=== PATIENT | male | born 1945 | race Caucasian/White ===

== ENCOUNTER 2019-07-24 03:59 | Inpatient (IN) | payer OTHER, MEDICARE ==
[~2019-07-24] VITALS: Ht 172.7 cm; Wt 67.6 kg
[~2019-07-24 03:59] MED LIST: ADVAIR HFA115 MCG/21 INH; AUGMENTIN 875-1 EACH PO; COLACE100 MG PO; FIBER500 MG PO; GAS-X125 M1 PO; HYDROCODONE-AP1 EAC6 PO; MOBIC7.5 MG PO; SIMVASTATIN20 MG PO; SPIRIVA INH; STOOL SOFTENER100 M1 PO; ZOFRAN ODT4 MG DISSOLVE
[2019-07-24 05:24] LABS: ANION GAP 7 mmol/L (7-16); BUN 28 mg/dL (7-18); CALCIUM 8.6 mg/dL (8.5-10.1); CHLORIDE 103 mmol/L (98-107); CO2 27 mmol/L (21-32); CREATININE 1.5 mg/dL (0.7-1.3); GLUCOSE 100 mg/dL (74-106); POTASSIUM 5.2 mmol/L (3.5-5.1); SODIUM 137 mmol/L (136-145)
[2019-07-24 05:25] LABS: ABSOLUTE NEUTROPHILS 4.5 thou/uL (1.4-8.2); BASOPHILS 1.2 % (0.0-2.0); EOSINOPHILS 2.5 % (0.0-3.0); HEMATOCRIT 28.5 % (42.0-52.0); HEMOGLOBIN 9.2 gm/dL (14.0-18.0); LYMPHOCYTES 22.6 % (24.0-44.0); MCH 31.5 pg (26.0-34.0); MCHC 32.4 g/dL (28.0-37.0); MCV 97.2 fL (80.0-100.0); MONOCYTES 7.1 % (1.0-8.0); PLATELET COUNT 155 thou/uL (150-400); POLYS 66.6 % (36.0-66.0); RBC 2.93 mil/uL (4.50-6.00); WBC 6.7 thou/uL (4.0-11.0)
[2019-07-24 05:28] LABS: PROTIME 10.5 Seconds (9.3-11.4)
[2019-07-24 05:34] LABS: ALBUMIN 3.2 g/dL (3.4-5.0); LIPASE 227 U/L (73-393); SGOT 16 U/L (15-37); SGPT 19 U/L (30-65); TOTAL BILIRUBIN 0.4 mg/dL (<0.1-1.0); TOTAL PROTEIN 6.1 g/dL (6.4-8.2); TROPONIN-I <0.06 ng/mL (<0.06)
[2019-07-24 06:02] LABS: URINE BILIRUBIN NEGATIVE (Negative); URINE BLOOD NEGATIVE (Negative); URINE CLARITY CLEAR; URINE COLOR YELLOW; URINE GLUCOSE-RANDOM* NEGATIVE (Negative); URINE KETONES NEGATIVE (Negative); URINE LEUKOCYTES-REFLEX NEGATIVE (Negative); URINE NITRITE-REFLEX NEGATIVE (Negative); URINE PROTEIN (DIPSTICK) NEGATIVE (Negative); URINE UROBILINOGEN 0.2 E.U./dl (0.2-1.0)
[2019-07-24 06:31] VITALS: BP 139/72
[2019-07-24 06:52] VITALS: BP 134/83
[2019-07-24 07:17] VITALS: BP 135/76
--- NOTE | 2019-07-24 09:05 | EKG ---
[address] [address] ELECTROCARDIOGRAM REPORT Name: FORDMARCELLE Room #: 353-P ADM IN M.R.#: [id number] Admission: 07/24/19 Attend Phys: Bhavin Gramajo MD Discharge: Date of : 47 Report #: [id number] THIS REPORT FOR: //name// [facility] ED Test Date: 2019-07-24 Test Time: 04:38:07 Pat Name: MARCELLE FORD Department: Room: [facility] Gender: M Manufacturing Engineering Director: SAROJ : 1945 Requested By: Kris Moreau Order Number: [id number] MD: Bj Crooks Measurements Intervals [place] Rate: 77 P: 84 ND: 138 QRS: 82 QRSD: 103 T: 82 QT: 393 QTc: 445 Interpretive Statements Sinus rhythm Borderline T wave abnormalities Compared to ECG 02/17/2016 14:21:09 T-wave abnormality now present Electronically Signed On 07-24-2019 9:05:27 LUBE MAN by Bj Crooks [email or web address] <ELECTRONICALLY SIGNED> By: Bj Crooks MD, [facility] 07/24/19904 0438 7 Bj Crooks MD, FAC /EPI
--- NOTE | 2019-07-24 10:43 | NUR ---
ASSESSMENT: CM REVIEWED CHART AND MET WITH PATIENT AT THE BEDSIDE. PT WAS ADMITTED WITH RECTAL BLEEDING. PT REPORTS HE LIVES IN A HOUSE WITH HIS . PT REPORTS THEY HAVE NO STEPS TO ENTER AND NO STEPS ONCE INSIDE. PT REPORTS HE AMBULATES INDEPENDENTLY BUT DOES USE A CANE WHEN GOING TO GET THE MAIL OR FOR LONG DISTANCES. PT REPORTS HE ALSO HAS A WALKER HE DOES NOT USE. PT REPORTS HE DOES NOT HAVE A GRAB BAR OR SHOWER CHAIR AND IS INDEPENDENT WITH ADLS. PT REPORTS THAT HE WEARS OXYGEN AT BEDTIME 4L AND UNSURE OF WHO THE PROVIDER IS. PT REPORTS HE HAS NOT HAD HH IN THE PAST OR BEEN TO A SNF. CM DISCUSSED ROLE. PT IS HOPEFUL HE WILL BE ABLE TO RETURN HOME WITH NO NEEDS.
[2019-07-24 11:19] VITALS: BP 123/78
[2019-07-24 11:27] LABS: TSH 2.063 uIU/mL (0.358-3.740)
[2019-07-24 12:08] LABS: HEMATOCRIT 25.6 % (42.0-52.0); HEMOGLOBIN 8.4 gm/dL (14.0-18.0)
--- NOTE | 2019-07-24 12:24 | NUR ---
Pt arrived from ER approx. 0645 this AM at shift change to room 353. Pt attached to surveillance system monitor. Maintenance fluids and protonix gtt started. Admission history complete. MED REC INCOMPLETE on unit as patient is unable to state what medications he is on. JOLENE Mcghee made aware and personally assessed patient at bedside this morning. H&H's ordered for Q8H. Will continue to monitor Hgb & signs of rectal bleeding.
[2019-07-24 12:30] LABS: FOLIC ACID 43.7 ng/mL (8.6-58.9)
[2019-07-24 16:00] VITALS: BP 148/81
[2019-07-24 19:27] VITALS: BP 126/65
[2019-07-24 19:45] LABS: HEMATOCRIT 25.6 % (42.0-52.0); HEMOGLOBIN 8.3 gm/dL (14.0-18.0)
[2019-07-25 03:14] VITALS: BP 121/69
[2019-07-25 03:44] LABS: ABSOLUTE NEUTROPHILS 4.9 thou/uL (1.4-8.2); HEMATOCRIT 23.9 % (42.0-52.0); HEMOGLOBIN 7.9 gm/dL (14.0-18.0); LYMPHOCYTES 18.5 % (24.0-44.0); MCH 32.1 pg (26.0-34.0); MCHC 33.1 g/dL (28.0-37.0); MCV 96.9 fL (80.0-100.0); MONOCYTES 6.6 % (1.0-8.0); PLATELET COUNT 147 thou/uL (150-400); POLYS 71.9 % (36.0-66.0); RBC 2.47 mil/uL (4.50-6.00); RDW 12.6 % (10.5-14.5); WBC 6.8 thou/uL (4.0-11.0)
[2019-07-25 03:51] LABS: CALCIUM 8.4 mg/dL (8.5-10.1); CREATININE 1.1 mg/dL (0.7-1.3); MAGNESIUM 1.6 mg/dL (1.8-2.4); POTASSIUM 4.5 mmol/L (3.5-5.1)
--- NOTE | 2019-07-25 05:47 | NUR ---
PT IS A/O X3 WITH FORGETFULNESS. PT HAS IMPULSIVENESS AND REFUSES TO TAKE DIRECTIONS FROM STAFF ABOUT STAYING SAFE AND USING CALL LIGHT, AND NOT GETTING UP WITHOUT STAFF. PT UNSCREWED HIS IV FROM THE J-LOOP AND DURING ROUNDS IT WAS DISCOVERED. IV SITE STILL INTACT. LABS RESULTED SHOWING HgB STILL DROPPING, WELL PLATELETS. FOLLOWING POC WITH IVF AND PROTONIX GTT.
[2019-07-25 07:17] VITALS: BP 130/73
[2019-07-25 11:00] LABS: % SATURATION 20 % (20-39); IRON 46 ug/dL (65-175); TIBC 228 ug/dL (250-450)
[2019-07-25 11:46] LABS: HEMATOCRIT 24.4 % (42.0-52.0); HEMOGLOBIN 8.1 gm/dL (14.0-18.0)
--- NOTE | 2019-07-25 12:09 | NUR ---
on-going assessment: CM REVIEWED CHART AND MET WITH PATIENT AT THE BEDSIDE. PT REPORTS HE WANTS TO GO HOME TO TAKE CARE OF HIS . PT REPORTS THAT SHE IS HOME BY HERSELF DURING THE DAY BUT HER GRANDSON IS ABLE TO LOOK AFTER HER BUT WORKS DURING THE DAY. HE STATES HE FEEDS HIS CATS/DOGS AROUND 3 AND IS HOPING TO BE HOME BEFORE THEN. CM ASKED IF HIS GRANDSON CAN DO THIS HE STATED YES BUT HE WONT BE THERE UNTIL LATER. CM OFFERED TO REACH OUT TO PTS OR GRANDSON AND PT STATED THAT IT WAS OK. PLANS ARE FOR PATIENT TO RETURN HOME ONCE MEDICALLY STABLE. PT IS SUPPOSED TO GET A FLEX SIG TODAY.
[2019-07-25 16:12] VITALS: BP 155/83
--- NOTE | 2019-07-25 16:20 | NUR ---
ASSUMED CARE OF PATIENT AT 0700. VSS. ROOM AIR. NORMAL SINUS RHYTHM ON MONITOR. PATIENT CONTINUES TO HAVE BLOODY STOOL - FLEX SIG TODAY DID NOT SHOW SOURCE OF BLEEDING. PATIENT HAS STAYED ABOVE BLOOD TRANSFUSION HEMOGLOBIN LIMIT OF 7. HGB WAS 7.8 WHEN I ASSUMED CARE AND 8.1 AT 11:39 THIS MORNING. PATIENT HAS COMPLAINT OF WANTING TO LEAVE - MUST BE EXPLAINED TO HIM MULTIPLE TIMES HE MUST STAY DUE TO BLEEDING AND PHYSICIAN HAS NOT DISCHARGED HIM YET. CONTINUING TO MONITOR.
[2019-07-25 20:30] VITALS: BP 142/53
[2019-07-26 04:26] LABS: CALCIUM 8.8 mg/dL (8.5-10.1); POTASSIUM 3.8 mmol/L (3.5-5.1)
[2019-07-26 05:27] VITALS: BP 158/60
--- NOTE | 2019-07-26 06:19 | NUR ---
RESUMED CARE FOR PT. PT SLEEPING IN CHAIR ALL NIGHT. FOLLOWING POC WITH IVF GTT AND PROTONIX GTT. PT HAS SOME CONFUSION AND IMPULSIVE. BED/CHAIR ALARMS IS A MUST. HOURLY ROUNDING.
[2019-07-26 07:15] VITALS: BP 148/70
--- NOTE | 2019-07-26 14:27 | NUR ---
Patient has been trying to leave AMA stating that he is leaving today no matter what anybody says. Patient has had early signs of dementia and has been very forgetful which has been progressively getting worse according to family. Patient stated he is "going to leave today and return to the hinduism Sunday." Patient's main point of contact Jan (grandson) was called by this RN, and told that the patient has been very impulsive trying to get up on his own, get dressed & stating that he is going to leave today. Jan said he will call Luther and tell him he has to stay. Patient reassured that his is okay, and being taken care of by family as he has been very concerned about his wifes well-being. One of the patient's daughters called the unit to confirm she is taking care of the patient's . She also stated as well as Jan that it is unsafe for the patient to be on the road driving; although, the patient drove himself here to the hospital. Dr. Pepe informed of all this information and consulted Dr. Metzger to assess the patients mentation and safety. The grandson is supposed to visit this afternoon, and Dr. Pepe said to call her when he arrives to have a discussion about the plan of care and what is best for the patient from here on out.
[2019-07-26 15:30] VITALS: BP 140/62
[2019-07-26 15:33] LABS: HEMATOCRIT 24.4 % (42.0-52.0)
[2019-07-26 19:45] VITALS: BP 157/68
[2019-07-27 04:19] VITALS: BP 142/59
[2019-07-27 05:10] LABS: ABSOLUTE NEUTROPHILS 9.2 thou/uL (1.4-8.2); BASOPHILS 0.4 % (0.0-2.0); EOSINOPHILS 0.9 % (0.0-3.0); HEMOGLOBIN 7.9 gm/dL (14.0-18.0); LYMPHOCYTES 9.7 % (24.0-44.0); MCH 31.6 pg (26.0-34.0); MCV 95.8 fL (80.0-100.0); PLATELET COUNT 170 thou/uL (150-400); RDW 12.6 % (10.5-14.5)
[2019-07-27 05:13] LABS: CALCIUM 8.8 mg/dL (8.5-10.1); CREATININE 1.1 mg/dL (0.7-1.3); MAGNESIUM 1.3 mg/dL (1.8-2.4); POTASSIUM 3.5 mmol/L (3.5-5.1)
--- NOTE | 2019-07-27 06:00 | NUR ---
PT RECEIVED PSYCH CONSULT AND DR STATES PT IS NOT TO LEAVE AMA NOR EVEN DRIVE UNTIL HE CAN BE EVALUATED BY DR. MENDOZA. PT IS STILL IMPULSIVE AND GETS UP WITHOUT ASSISTANCE. FOLLOWING POC WITH PROTONIX GTT AND IVF. VSS AND PT RESTING COMFORTABLY IN CHAIR. HOURLY ROUNDING.
[2019-07-27 07:56] VITALS: BP 137/65
[2019-07-27 10:14] LABS: OBSERVED RETIC COUNT 2.85 % (0.6-2.6)
[2019-07-27 15:06] VITALS: BP 135/60
[2019-07-27] MEDS ORDERED: PROTONIX 20 MG20 M1 PO (15:36)
[2019-07-27 16:04] VITALS: BP 135/60
[2019-07-27 16:28] VITALS: BP 135/60
--- NOTE | 2019-07-27 16:32 | NUR ---
Assumed care approx. 0700 this AM. Protonix gtt and fluids dc'd. Renal diet ordered-pt tolerated food intake well. No nausea or vomiting. Pts family instructed to come to the hospital to pick the patient up as he shouldn't drive per the [facility] consult. Patient's daughter to pick patient up. Dr. Pepe put in discharge orders at that time. Discharge packet discussed with patient, follow up appointments, & education to NOT drink alcohol as this can increase his risk of bleeding. Pt denies drinking at time of discharge and patient's daughter said she is unaware that he still drinks, but it could be possible. Pt said to this RN and Litzy, INVESTOR RELATIONS MANAGER at admission he drinks "tequila nancy" 1-2x per day. Pt instructed to STOP. Pt also encouraged to not smoke. Protonix script sent to pharmacy. Medicare rights paperwork signed. IV and tele dc'd. Pt taken out by wheelchair at approx. 1625 with community development planner to patients' daughters car.
--- NOTE | 2019-07-28 16:56 | HC ---
[facility] [place] [address] CONSULTATION Name: MARCELLE FORD Room #: 353-P [facility] IN M.R.#: [id number] Admission: 07/24/19 Attend Phys: Bhavin Gramajo MD Discharge: 07/27/19 Date of : 47 Report #: [id number] THIS REPORT FOR: //name// CC: Bhavin Hernández DATE OF SERVICE: 07/26/2019 HISTORY OF PRESENT ILLNESS: This is a 73-year-old man who we were asked to see for consultation regarding capacity to make medical decisions. The patient has a rectal bleed, low blood count and it is fairly striking when you ask the patient about this and he has been told multiple times today about this with other physicians that he has a significant problem. He denies it and he says that that was the case in the past, he does not have any low blood counts now, he is perfectly fine. He denies any issues with his medical care, but he is willing to stay at least overnight to get reevaluated by the doctor. He saw a GI physician today and they are going to likely release him as long as blood counts remained stable, but regarding his care and condition, the patient is disoriented. He does not know the date. He thought today was Sunday. He did know the year, but he did not know the hospital, he did not know his medical condition, he could not repeat risks and benefits regarding care and treatment and decision points regarding these risks and benefits, about refusing care. He recognizes no risk to himself or no problems with his memory. The patient was pleasant, is calm. 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 He was able to relate history in the past such as he grew up in [place]. He denies review of systems for depression, eli, psychosis, OCD agoraphobic features. PAST PSYCHIATRIC HISTORY: Denies. MEDICAL HISTORY: Most pressing issues, he has anemia secondary to gastrointestinal bleed. Otherwise, noted on the chart other medical conditions. ALLERGIES: Well documented. MENTAL STATUS EXAMINATION: Alert, oriented to being in the hospital, but did not know which one. He did not know the correct month. He did not know any recent holidays. He could not tell me reliably his current care and condition, medical conditions, risks and benefits regarding care, which were explained to him and then after 5 minutes I asked again, he was not able to relate those risks and benefits or retain that information. He is calm, he is pleasant. He is denying any depression. He has some mild anxiety about being in the hospital. He says it is because of the medical conditions such as an adjustment disorder secondary to his medical condition. [facility] [address] [place] [address] CONSULTATION Name: MARCELLE FORD Room #: 353-P [facility] IN M.R.#: [id number] Admission: 07/24/19 Attend Phys: Bhavin Gramajo MD Discharge: 07/27/19 Date of : 47 Report #: [id number] He does not feel he needs any treatment for this and possibly just some routine anxiety. FAMILY PSYCHIATRIC HISTORY: Denied. SOCIAL HISTORY: Again worked in heating and cooling. He has a tattoo on his hand and says the word hate on it because he did not like the [place] police when he was age 15. Medications reviewed on the chart as well as stated history. He says he does not have a history of alcohol abuse, but it is noted on his chart but again, he is not a very reliable historian. He quit smoking about a year ago. He had a nephrectomy for a mass and he said he ____ had a cancer, but he could not tell me which one. Apparently, he has stopped drinking about a year ago. MENTAL STATUS EXAMINATION: His affect again is pleasant. He had some impaired attention and concentration, limited focus. Insight and judgment are poor and impaired. PLAN: At this point, the patient lacks capacity to make medical decisions given the above ____ to be followed over time for more of a permanent discussion of what that would mean but for now it is appropriate that you are looking to next of kin to make decisions for the patient and he cannot be discharged from the hospital against medical advice on his own accord because he lacks capacity. Thank you for the consultation. We will follow the patient while he is here. If you have any questions, give us a call. He can followup in our office, for appointment if necessary or with Dr. Kirk Bai for a neurocognitive evaluation for further investigation of his cognitive status. <ELECTRONICALLY SIGNED> By: Dimple Metzger MD 07/28/19 [phone] Alton Jo MD /nt
== END 2019-07-27 16:47 | disposition home or self-care (01) | DRG 377 ==
LOC: ER 03:59 → 3W 06:03 → EROBS 06:03 → 3W 07:16
PROVIDERS: Emergency Medicine; Internal Medicine; Nurse Practitioner; ADMIT Hospitalist
PROC: 0DJD8ZZ Inspection of Lower Intestinal Tract, Via Natural or Artificial Opening Endoscopic (ICD-10-PCS; principal; 2019-07-25)
DX: K57.31 Diverticulosis of large intestine without perforation or abscess with bleeding (principal); N17.0 Acute kidney failure with tubular necrosis; D62 Acute posthemorrhagic anemia; E87.5 Hyperkalemia; J44.9 Chronic obstructive pulmonary disease, unspecified; M19.90 Unspecified osteoarthritis, unspecified site; N18.9 Chronic kidney disease, unspecified; E78.5 Hyperlipidemia, unspecified; F10.10 Alcohol abuse, uncomplicated; F03.90 Unspecified dementia, unspecified severity, without behavioral disturbance, psychotic disturbance, mood disturbance, and anxiety; F41.9 Anxiety disorder, unspecified; Z28.21 Immunization not carried out because of patient refusal; Z90.49 Acquired absence of other specified parts of digestive tract; Z87.891 Personal history of nicotine dependence; Z90.5 Acquired absence of kidney; Z72.89 Other problems related to lifestyle; Z79.1 Long term (current) use of non-steroidal anti-inflammatories (NSAID)
CPT/HCPCS: 10879; 62110; 62900; 70005

== ENCOUNTER 2019-08-08 09:42 | Inpatient (IN) | payer OTHER, MEDICARE ==
[~2019-08-08] VITALS: Ht 175.3 cm; Wt 63.5 kg
[~2019-08-08 09:42] MED LIST changes: +PROTONIX 20 MG20 M1 PO
[2019-08-08 09:55] VITALS: BP 125/57
[2019-08-08 10:32] LABS: ABSOLUTE NEUTROPHILS 5.6 thou/uL (1.4-8.2); MCH 32.5 pg (26.0-34.0); PLATELET COUNT 226 thou/uL (150-400); POLYS 71.4 % (36.0-66.0); RBC 1.44 mil/uL (4.50-6.00)
[2019-08-08 10:34] LABS: ANION GAP 7 mmol/L (7-16); BUN 24 mg/dL (7-18); CALCIUM 9.2 mg/dL (8.5-10.1); CHLORIDE 102 mmol/L (98-107); CO2 28 mmol/L (21-32); CREATININE 1.2 mg/dL (0.7-1.3); EOSINOPHILS 2.1 % (0.0-3.0); GLUCOSE 99 mg/dL (74-106); LYMPHOCYTES 17.2 % (24.0-44.0); MCHC 32.6 g/dL (28.0-37.0); MCV 99.6 fL (80.0-100.0); MONOCYTES 8.3 % (1.0-8.0); POTASSIUM 3.8 mmol/L (3.5-5.1); RDW 16.2 % (10.5-14.5); SODIUM 137 mmol/L (136-145); WBC 7.9 thou/uL (4.0-11.0)
[2019-08-08 10:42] LABS: HEMATOCRIT 14.3 % (42.0-52.0); HEMOGLOBIN 4.7 gm/dL (14.0-18.0)
[2019-08-08 10:44] LABS: ALBUMIN 2.8 g/dL (3.4-5.0); SGOT 16 U/L (15-37); SGPT 27 U/L (30-65); TOTAL BILIRUBIN 0.2 mg/dL (<0.1-1.0); TOTAL PROTEIN 6.2 g/dL (6.4-8.2); TROPONIN-I <0.06 ng/mL (<0.06)
[2019-08-08 11:01] LABS: PROTIME 9.4 Seconds (9.3-11.4)
[2019-08-08 11:05] LABS: APTT 19.4 Seconds (24.5-32.8)
[2019-08-08 12:34] VITALS: BP 121/61; BP 135/64; BP 135/67; BP 135/68
--- NOTE | 2019-08-08 13:10 | EKG ---
[address] [address] ELECTROCARDIOGRAM REPORT Name: FORDMARCELLE Room #: 170-7 ADM IN M.R.#: [id number] Admission: 08/08/19 Attend Phys: Dell Raman MD Discharge: Date of : 47 Report #: [id number] THIS REPORT FOR: //name// [facility] ED Test Date: 2019-08-08 Test Time: 10:29:15 Pat Name: MARCELLE FORD Department: Room: 170 Gender: M Sql Server Consultant: MANUEL : 1945 Requested By: Kylee Harris Order Number: [id number] MD: Cecilio Whitaker Measurements Intervals [place] Rate: 93 P: 79 FL: 137 QRS: 78 QRSD: 101 T: 69 QT: 364 QTc: 453 Interpretive Statements Sinus rhythm Compared to ECG 07/24/2019 04:38:07 T-wave abnormality no longer present Electronically Signed On 08-08-2019 13:10:47 SENIOR CENTER DIRECTOR by Cecilio Whitaker [email or web address] <ELECTRONICALLY SIGNED> By: Cecilio Whitaker MD 08/08/19 1310 1029 1029 Cecilio Whitaker MD /BRONWYN
[2019-08-08 14:48] VITALS: BP 135/64
[2019-08-08 15:18] VITALS: BP 128/64
[2019-08-08 15:25] VITALS: BP 140/63
[2019-08-08 16:34] LABS: HEMOGLOBIN 6.2 gm/dL (14.0-18.0)
[2019-08-08 16:58] VITALS: BP 130/62; BP 139/69
--- NOTE | 2019-08-08 17:18 | NUR ---
PT CARE ASSUMED APPROX 1545. ASSESSMENTS CHARTED. DENIES PAIN AND SOA. VSS. ARRIVED WITH PT FROM ED. BOTH PT AND SPOUSE ARE SEVERLY [place]. BOTH EDUCATED MULTIPLE TIMES REGARDING POC BUT THIS NURSE QUESTIONS IF ALL INFO WAS RECEIVED ADEQUATELY DUE TO HEARING IMPAIRMENT AND INTERMITTENT CONFUSION. PT UP WITH ASSIST. STEADY. TOLERATING BLOOD TRANSFUSION AT THIS TIME WELL THE REST OF POC. BOWEL PREP TO BE INITIATED ONCE GATORADE ARRIVES TO UNIT. NO DISTRESS NOTED.
[2019-08-08 17:25] LABS: URINE BILIRUBIN NEGATIVE (Negative); URINE BLOOD NEGATIVE (Negative); URINE CLARITY CLEAR; URINE COLOR YELLOW; URINE GLUCOSE-RANDOM* NEGATIVE (Negative); URINE KETONES NEGATIVE (Negative); URINE LEUKOCYTES-REFLEX NEGATIVE (Negative); URINE NITRITE-REFLEX NEGATIVE (Negative); URINE PROTEIN (DIPSTICK) NEGATIVE (Negative); URINE SPECIFIC GRAVITY 1.015 (1.005-1.035); URINE UROBILINOGEN 0.2 E.U./dl (0.2-1.0)
--- NOTE | 2019-08-09 02:41 | NUR ---
ALERT,HARD OF HEARING,FORGETFUL.UP WITH ASSIST.SISTER CALLED TONIGHT AND SPOKE TO PATIENT.BLOOD TRANSFUSION COMPLETED WITHOUT ANY TRASFUSION REACTION.NPO AFTER MIDNIGHT.REFUSED GOLYTELY.MONITOR SHOWS SR.POC CONTINUED.
[2019-08-09 04:38] LABS: CALCIUM 8.1 mg/dL (8.5-10.1); CREATININE 0.9 mg/dL (0.7-1.3); MAGNESIUM 1.7 mg/dL (1.8-2.4); POTASSIUM 3.8 mmol/L (3.5-5.1)
[2019-08-09 04:54] LABS: ABSOLUTE NEUTROPHILS 4.7 thou/uL (1.4-8.2); BASOPHILS 0.7 % (0.0-2.0); EOSINOPHILS 2.6 % (0.0-3.0); HEMATOCRIT 22.7 % (42.0-52.0); HEMOGLOBIN 7.4 gm/dL (14.0-18.0); LYMPHOCYTES 24.1 % (24.0-44.0); MCH 29.9 pg (26.0-34.0); MCHC 32.5 g/dL (28.0-37.0); MONOCYTES 7.5 % (1.0-8.0); PLATELET COUNT 193 thou/uL (150-400); POLYS 65.1 % (36.0-66.0); RBC 2.48 mil/uL (4.50-6.00); RDW 18.9 % (10.5-14.5); WBC 7.2 thou/uL (4.0-11.0)
[2019-08-09 04:55] LABS: MCV 91.7 fL (80.0-100.0)
[2019-08-09 05:00] VITALS: BP 119/78
[2019-08-09 07:55] VITALS: BP 120/73
[2019-08-09 12:00] VITALS: BP 132/75
[2019-08-09 13:55] VITALS: BP 132/75
--- NOTE | 2019-08-09 14:23 | NUR ---
CONSULT [id number] HAS BEEN COMPLETED BY THIS IT SECURITY ANALYST.
--- NOTE | 2019-08-09 16:50 | NUR ---
PT CARE ASSUMED APPROX 0700. ASSESSMENT CHARTED. DENIES PAIN AND SOA. WEANED FROM O2. TOLERATING POC. COMPLETED EGD WITHOUT ISSUE. DR GARCIA TOLD THIS NURSE THAT IF PT TOLERATED REGULAR MEAL FOR LUNCH THAT DR SMITH COULD DISHCARGE HIM. PT TOLERATED REGULAR FOOD AND DR SMITH APPROVED FOR DISCHARGE. VSS. UP WITH STEADY GAIT. PT, SPOUSE AND DAUGHTER ALL PRESENT FOR DISCHARGE EDUCATION. ALL DENY QUESTIONS AND CONCERNS REGARDING POST HOSPITAL CARE. IV OUT, TELE BOX OFF. PT WALKED OUT WITH FAMILY.
--- NOTE | 2019-08-13 17:06 | PATH ---
[facility] [place] [address] PATHOLOGY RPT PROCEDURE Name: MARCELLE FORD Room #: 207-P DIS IN M.R.#: [id number] Admission: 08/08/19 Date of : 47 Discharge: 08/09/19 Report #: [id number] Path Case #: [id number] [facility] Accession Number: [id number] . 01 Material submitted: . PART A: duodenum - BIOPSY OF DUODENUM R/O CELIAC PART B: stomach - BIOPSY OF ANTRUM R/O H. PYLORI . 01 Clinical history: . GI bleed A. R/O celiac B. R/O H. pylori . 02 Diagnosis: A. Small bowel mucosa, R/O celiac, endoscopic biopsy: - Mild nonspecific chronic inflammation. - Negative for villous blunting or increase in intraepithelial lymphocytes. . B. Gastric mucosa, antrum, endoscopic biopsy: - Mild reactive gastropathy. - Negative for intestinal metaplasia or atrophy. - Negative for Helicobacter pylori (properly controlled immunohistochemical stain performed). . (IUV:ramos; 08/13/2019) QMS 08/13/2019 1508 Local . 02 Electronically signed: . Izzy Tomlinson MD, Pathologist NPI- [id number] . 01 Gross description: . A. The specimen is received in formalin, labeled "Marcelle Ford, biopsy of duodenum, R/O celiac". Received is a segment of pale garcia soft tissue measuring 0.4 cm in maximum dimensions. The specimen is submitted entirely in cassette A1. . B. The specimen is received in formalin, labeled "Marcelle Ford, biopsy of antrum, R/O H. pylori". Received are two segments of pale garcia soft tissue measuring 0.4 cm each in maximum dimensions. The specimen is submitted entirely in cassette B1. (CAA; 08/12/2019) QA/[facility] 08/12/2019 0901 Local . 02 Pathologist provided ICD-10: K52.9, K31.9 [place] [address] PATHOLOGY RPT PROCEDURE Name: MARCELLE FORD Room #: 207-P DIS IN M.R.#: [id number] Admission: 08/08/19 Date of : 47 Discharge: 08/09/19 Report #: [id number] Path Case #: [id number] . 02 [facility] . [id number], [id number], [id number] Specimen Comment: A courtesy copy of this report has been sent to [phone] Specimen Comment: [phone], Specimen Comment: Report sent to , and Performed at: [address], [place] [id number] MD Ignacio Cartagena MD Phone: [phone] Performed at: [address] [id number] MD Izzy Tomlinson MD Phone: [phone]
== END 2019-08-09 16:25 | disposition home or self-care (01) | DRG 377 ==
LOC: ER 09:42 → EROBS 11:00 → 2N 15:19
PROVIDERS: Nurse Practitioner; Student in an Organized Health Care Education/Training Program; ADMIT Hospitalist
DX: K29.71 Gastritis, unspecified, with bleeding (principal); E43 Unspecified severe protein-calorie malnutrition; D68.9 Coagulation defect, unspecified; D62 Acute posthemorrhagic anemia; J44.9 Chronic obstructive pulmonary disease, unspecified; M19.90 Unspecified osteoarthritis, unspecified site; F03.90 Unspecified dementia, unspecified severity, without behavioral disturbance, psychotic disturbance, mood disturbance, and anxiety; K57.31 Diverticulosis of large intestine without perforation or abscess with bleeding; E78.5 Hyperlipidemia, unspecified; F10.10 Alcohol abuse, uncomplicated; Z79.1 Long term (current) use of non-steroidal anti-inflammatories (NSAID); Z90.49 Acquired absence of other specified parts of digestive tract; Z87.891 Personal history of nicotine dependence; Z90.5 Acquired absence of kidney; Z68.20 Body mass index [BMI] 20.0-20.9, adult; Z86.010 Personal history of colon polyps; Z79.899 Other long term (current) drug therapy
CPT/HCPCS: 10081